=== PATIENT | female | born 1945 | race Caucasian/White ===

== ENCOUNTER → 2018-01-07 | Emergency (ER) | payer OTHER ==
[~2018-01-07] VITALS: Ht 152.4 cm; Wt 61.7 kg
[~2018-01-07] MED LIST: ZANTAC300 MG PO
== END | disposition home or self-care (01) ==
LOC: ER 08:46
DX: R05 Cough (principal); B34.9 Viral infection, unspecified; D64.89 Other specified anemias; J11.1 Influenza due to unidentified influenza virus with other respiratory manifestations

== ENCOUNTER 2018-01-18 09:59 | Outpatient (CLI) | payer OTHER ==
[~2018-01-18] VITALS: Ht 152.4 cm; Wt 61.2 kg
== END 2018-01-18 10:15 | disposition home or self-care (01) ==
LOC: OFIC 805 09:59
DX: J32.8 Other chronic sinusitis (principal); R13.19 Other dysphagia; R05 Cough; R49.0 Dysphonia; R09.82 Postnasal drip

== ENCOUNTER 2018-01-21 08:17 | Emergency (ER) | payer OTHER ==
[~2018-01-21] VITALS: Ht 157.5 cm; Wt 60.8 kg
== END 2018-01-21 12:04 | disposition home or self-care (01) ==
LOC: ER 08:17
DX: J32.9 Chronic sinusitis, unspecified (principal)

== ENCOUNTER 2018-02-06 10:14 | Outpatient (CLI) | payer OTHER ==
[~2018-02-06] VITALS: Ht 152.4 cm; Wt 61.2 kg
== END 2018-02-06 10:30 | disposition home or self-care (01) ==
LOC: OFIC 805 10:14
DX: H93.13 Tinnitus, bilateral (principal); J30.89 Other allergic rhinitis; R49.0 Dysphonia; R05 Cough

== ENCOUNTER 2019-10-26 11:19 | Emergency (ER) | payer OTHER ==
[~2019-10-26] VITALS: Ht 160 cm; Wt 56.7 kg
== END 2019-10-26 14:30 | disposition home or self-care (01) ==
LOC: ER 11:19
DX: H10.11 Acute atopic conjunctivitis, right eye (principal)

== ENCOUNTER 2019-10-30 14:03 | Emergency (ER) | payer OTHER ==
[~2019-10-30] VITALS: Ht 160 cm; Wt 56.7 kg
== END 2019-10-30 19:12 | disposition home or self-care (01) ==
LOC: ER 14:03
DX: N39.0 Urinary tract infection, site not specified (principal); K59.09 Other constipation; D25.9 Leiomyoma of uterus, unspecified

== ENCOUNTER 2019-11-01 13:48 | Emergency (ER) | payer OTHER ==
[~2019-11-01] VITALS: Ht 152.4 cm; Wt 56.7 kg
[2019-11-01] MEDS ORDERED: LEVAQUIN500 MG (15:37)
== END 2019-11-01 21:32 | disposition home or self-care (01) ==
LOC: ER 13:48
DX: R42 Dizziness and giddiness (principal)

== ENCOUNTER 2020-01-01 12:09 | Outpatient (CLI) | payer OTHER ==
[~2020-01-01 12:09] MED LIST changes: +LEVAQUIN500 MG
== END 2020-01-01 13:45 | disposition home or self-care (01) ==
LOC: OFIC 805 12:09
DX: R05 Cough (principal); R13.19 Other dysphagia; R49.0 Dysphonia; J32.8 Other chronic sinusitis
CPT/HCPCS: 31575; 99213; G0463

== ENCOUNTER 2020-01-10 16:20 | Outpatient (CLI) | payer OTHER ==
[~2020-01-10] VITALS: Ht 152.4 cm; Wt 59.0 kg
== END 2020-01-10 17:31 | disposition home or self-care (01) ==
LOC: OFIC 805 16:20
DX: K21.0 Gastro-esophageal reflux disease with esophagitis (principal); R07.0 Pain in throat
CPT/HCPCS: 31575; 99213; G0463

== ENCOUNTER 2020-01-22 09:51 | Outpatient (CLI) | payer OTHER | END 2020-01-22 14:00 | disposition home or self-care (01) | LOC: OFIC 805 09:51 | DX: J30.89 Other allergic rhinitis (principal); H93.13 Tinnitus, bilateral; R09.82 Postnasal drip; R05 Cough; K21.0 Gastro-esophageal reflux disease with esophagitis ==

== ENCOUNTER 2020-01-29 09:04 | Outpatient (CLI) | payer OTHER ==
[2020-01-31] MEDS ORDERED: PRILOSEC OTC20 MG PO (19:59)
== END 2020-01-29 11:30 | disposition home or self-care (01) ==
LOC: OFIC 805 09:04
DX: J37.0 Chronic laryngitis (principal); R05 Cough; J30.89 Other allergic rhinitis

== ENCOUNTER → 2020-02-13 | Outpatient (CLI) | payer OTHER ==
[~2020-02-13] MED LIST changes: +PRILOSEC OTC20 MG PO; +ZANTAC150 MG PO
== END | disposition home or self-care (01) ==
LOC: OFIC 805 11:12
DX: R07.0 Pain in throat (principal); K21.0 Gastro-esophageal reflux disease with esophagitis

== ENCOUNTER → 2020-02-21 | Outpatient (CLI) | payer OTHER | END | disposition home or self-care (01) | LOC: OFIC 805 12:41 | DX: R07.0 Pain in throat (principal); K21.0 Gastro-esophageal reflux disease with esophagitis; J30.89 Other allergic rhinitis ==

== ENCOUNTER → 2020-02-28 | Outpatient (CLI) | payer OTHER | END | disposition home or self-care (01) | LOC: OFIC 805 10:45 | DX: B99.8 Other infectious disease (principal); R07.0 Pain in throat; K21.0 Gastro-esophageal reflux disease with esophagitis ==

== ENCOUNTER 2024-05-19 21:51 | Emergency (ER) | payer OTHER ==
[~2024-05-19] VITALS: Ht 152.4 cm; Wt 52.2 kg
[2024-05-20] MEDS ORDERED: 0.9 % SODIUM CHLORIDE 1,000 ML IV SCH (00:30)
[2024-05-20] MEDS ORDERED: KETOROLAC TROMETHAMINE 15 MG VIAL IV ONE (00:30)
[2024-05-20] MEDS ORDERED: KETOROLAC TROMETHAMINE 30 MG VIAL ONE (00:40)
[2024-05-20 01:17] LABS: HEMATOCRIT 38.1 % (36.0-45.00); HEMOGLOBIN 12.8 g/dL (12.0-15.00); MEAN CELL VOLUME 92.9 fL (80.00-100.00); MEAN CORPUSCULAR HEMOGLOBIN 31.3 pg (27.00-32.0); MEAN CORPUSCULAR HGB CONC 33.7 g/dl (32.0-36.0); PLATELET COUNT 183 K/uL (150-450); RED CELL DISTRIBUTION WIDTH 14.9 % (11.5-14.5)
[2024-05-20 01:23] LABS: URINE BILIRRUBIN Negative (NEGATIVE); URINE BLOOD Large; URINE GLUCOSE Negative (NEGATIVE); URINE LEUKOCYTE Small; URINE NITRATE Negative; URINE PROTEIN >=1000 (NEGATIVE); URINE UROBILINOGEN 0.2 E.U./dl
[2024-05-20 01:26] LABS: URINE EPITHELIAL CELLS 18.2 uL (0.0-38.8); URINE WBC 491.9 uL (0.0-23.2)
[2024-05-20 01:36] LABS: INR 1.02; PROTHROMBIN TIME 10.7 SECONDS (9.0-11.5)
[2024-05-20 01:40] LABS: ALBUMIN 4.3 gm/dL (3.4-5.0); BILIRUBIN TOTAL 0.63 mg/dL (0.3-1.2); CREATININE SERUM 0.82 mg/dL (0.55-1.02); GFR 67.07; POTASSIUM 4.36 mEq/L (3.5-5.1); TOTAL PROTEIN 8.3 gm/dL (6.4-8.2)
[2024-05-20 01:43] LABS: URINE APPEARANCE TURBID; URINE BACTERIA > 9821.5 uL (0.0-1933); URINE COLOR RED; URINE RBC > 10558.9 uL (0.0-20.8)
== END 2024-05-20 09:31 ==
LOC: ER 21:52
PROVIDERS: General Practice
DX: R31.0 Gross hematuria (principal); N93.8 Other specified abnormal uterine and vaginal bleeding
CPT/HCPCS: 36415; 74177; 76830; 96365; 96366; 99284; J1885; J7030; Q9965

== ENCOUNTER 2025-07-15 08:00 | Outpatient (CLI) | payer OTHER ==
[~2025-07-15] VITALS: Ht 152.4 cm; Wt 45.4 kg
[2025-07-15 08:54] VITALS: BP 140/69
[2025-07-15 11:30] LABS: RH POSITIVE
[2025-07-15 14:07] LABS: COVID-19 AG NEGATIVE (NEGATIVE)
== END 2025-07-15 08:15 | disposition home or self-care (01) ==
LOC: RAD 08:00 → EDSTATUS 07-18 07:00 → SURH 07-18 07:00
PROVIDERS: ATTEND Obstetrics & Gynecology Gynecologic Oncology
DX: D25.9 Leiomyoma of uterus, unspecified (principal); Z01.818 Encounter for other preprocedural examination; D64.9 Anemia, unspecified; N39.0 Urinary tract infection, site not specified; I10 Essential (primary) hypertension

== ENCOUNTER 2025-08-27 11:13 | Inpatient (IN) | payer OTHER ==
[~2025-08-27] VITALS: Ht 152.4 cm; Wt 45.4 kg
[2025-08-27] MEDS ORDERED: ACETAMINOPHEN 500 MG GEL..CAP PO ONE ×2 (12:15→13:27)
[2025-08-27] MEDS ORDERED: FAMOTIDINE/PF 20 MG in 0.9 % SODIUM CHLORIDE 8 ML IV PUSH ONE (12:15)
[2025-08-27] MEDS ORDERED: 0.9 % SODIUM CHLORIDE 1,000 ML IV SCH (12:15)
[2025-08-27 14:13] LABS: BASO % 0.5 % (0.1-1.2); EOS # 0.03 (0.04-0.54); EOS % 0.7 % (0.7-7.0); LYMPH # 0.95 (1.18-3.74); LYMPH % 22.5 % (19.3-53.1); MEAN PLATELET VOLUME 10.30 fl (9.4-12.4); MONO # 0.29 (0.24-0.82); MONO % 6.9 % (4.7-12.5); NEUT # 2.92 (1.56-6.13); NEUT % 69.2 % (34.0-71.1); RED CELL DISTRIBUTION WIDTH 14.3 % (11.6-14.4)
[2025-08-27 14:42] LABS: INR 1.02
[2025-08-27 14:53] LABS: URINE APPEARANCE BLOODY; URINE BILIRRUBIN LARGE (NEGATIVE); URINE BLOOD LARGE; URINE COLOR RED; URINE GLUCOSE 100 MG/DL (NEGATIVE); URINE KETONE 15 (NEGATIVE); URINE LEUKOCYTE MODERATE; URINE NITRATE POSITIVE; URINE PROTEIN >=300 (NEGATIVE); URINE UROBILINOGEN >= 8.0 E.U./dl
[2025-08-27 14:54] LABS: URINE BACTERIA MODERATE; URINE EPITHELIAL CELLS 0-4 /HPF; URINE RBC LOADED /HPF; URINE WBC 0-2 /hpf
[2025-08-27 15:09] LABS: ALT/SGPT 35.0 U/L (12-78); AST/SGOT 37.0 U/L (15-37); BILIRUBIN TOTAL 0.51 mg/dL (0.3-1.2); BUN CREA RATIO 23.0 (7.0-25.0); CREATININE SERUM 0.82 mg/dL (0.55-1.02); GFR 66.91; GLOBULINA 3.6 G/DL (2.4-3.5); GLUCOSE FASTING 104.0 mg/dL (65-100); OSMOLALITY SERUM 286.0 MOSM/KG (275-295)
[2025-08-27] MEDS ORDERED: ACETAMINOPHEN 325 MG TABLET PO PRN (22:00)
[2025-08-27] MEDS ORDERED: ONDANSETRON HCL 4 MG in 0.9 % SODIUM CHLORIDE 50 ML IV PRN (22:00)
[2025-08-27 23:00] VITALS: BP 112/59; O2SAT 100
[2025-08-28 06:21] LABS: BASO % 0.6 % (0.1-1.2); EOS # 0.11 (0.04-0.54); EOS % 3.1 % (0.7-7.0); LYMPH # 1.02 (1.18-3.74); LYMPH % 28.4 % (19.3-53.1); MEAN PLATELET VOLUME 10.70 fl (9.4-12.4); MONO # 0.36 (0.24-0.82); MONO % 10.0 % (4.7-12.5); NEUT # 2.08 (1.56-6.13); NEUT % 57.9 % (34.0-71.1); RED CELL DISTRIBUTION WIDTH 14.2 % (11.6-14.4)
[2025-08-28 08:53] VITALS: BP 120/75; O2SAT 99
[2025-08-28] MEDS ORDERED: PANTOPRAZOLE SODIUM 40 MG/VIAL VIAL IV SCH (09:00)
[2025-08-28 15:34] VITALS: BP 96/55; O2SAT 100
[2025-08-28 18:06] VITALS: BP 129/83
[2025-08-29 02:34] VITALS: BP 105/67; O2SAT 97
[2025-08-29] MEDS ORDERED: AMINOCAPROIC ACID 250 MG/ML VIAL IV NR (08:00)
[2025-08-29 08:04] LABS: D DIMER 0.43 MG/L
[2025-08-29 10:23] VITALS: BP 135/78; O2SAT 98
[2025-08-29 16:21] LABS: BASO % 0.5 % (0.1-1.2); EOS # 0.11 (0.04-0.54); EOS % 2.6 % (0.7-7.0); LYMPH # 0.75 (1.18-3.74); LYMPH % 17.9 % (19.3-53.1); MEAN PLATELET VOLUME 10.80 fl (9.4-12.4); MONO # 0.37 (0.24-0.82); MONO % 8.8 % (4.7-12.5); NEUT # 2.93 (1.56-6.13); NEUT % 70.0 % (34.0-71.1); RED CELL DISTRIBUTION WIDTH 14.5 % (11.6-14.4)
[2025-08-29 18:46] VITALS: BP 108/64; O2SAT 98
[2025-08-30 03:48] VITALS: BP 120/76; O2SAT 97
[2025-08-30 09:33] VITALS: BP 132/74; O2SAT 97
[2025-08-30] MEDS ORDERED: AMINOCAPROIC ACID 250 MG/ML VIAL IV STA (15:17)
[2025-08-30 18:47] VITALS: BP 126/68; O2SAT 98
[2025-08-31 04:06] VITALS: BP 112/69; O2SAT 96
[2025-08-31 10:23] VITALS: BP 112/65; O2SAT 97
[2025-08-31 18:32] VITALS: BP 115/68
[2025-09-01 02:35] VITALS: BP 109/58; O2SAT 96
[2025-09-01 05:00] LABS: BASO % 0.6 % (0.1-1.2); EOS # 0.13 (0.04-0.54); EOS % 3.8 % (0.7-7.0); LYMPH # 0.97 (1.18-3.74); LYMPH % 28.4 % (19.3-53.1); MEAN PLATELET VOLUME 11.00 fl (9.4-12.4); MONO # 0.36 (0.24-0.82); MONO % 10.5 % (4.7-12.5); NEUT # 1.94 (1.56-6.13); NEUT % 56.7 % (34.0-71.1); RED CELL DISTRIBUTION WIDTH 14.3 % (11.6-14.4)
[2025-09-01 10:30] VITALS: BP 129/72; O2SAT 99
[2025-09-01 18:44] VITALS: BP 130/72
== END 2025-09-01 20:46 | disposition home or self-care (01) | DRG 696 ==
LOC: ER 11:13 → SEC-K 21:55 → MEDJ 08-28 14:07
PROVIDERS: General Practice; Internal Medicine Hematology & Oncology; Student in an Organized Health Care Education/Training Program; ADMIT Internal Medicine; ATTEND Internal Medicine
PROC: BW21YZZ Computerized Tomography (CT Scan) of Abdomen and Pelvis using Other Contrast (ICD-10-PCS; principal; 2025-08-27)
PROC: BW3GZZZ Magnetic Resonance Imaging (MRI) of Pelvic Region (ICD-10-PCS; 2025-08-28)
DX: R31.0 Gross hematuria (principal); D69.6 Thrombocytopenia, unspecified
CPT/HCPCS: 72195